=== PATIENT | male | born 1985 | race Caucasian/White ===

== ENCOUNTER → 2020-12-02 13:55 | Outpatient (BNVA) | payer OTHER, SELFPAY | PROVIDERS: Visit Provider Nurse Practitioner Family | DX: Z20.828 Contact with and (suspected) exposure to other viral communicable diseases (principal) | CPT/HCPCS: 87635 ==

== ENCOUNTER → 2021-05-05 15:07 | Outpatient (BNVA) | payer SELFPAY | PROVIDERS: Visit Provider Emergency Medicine | DX: M79.643 Pain in unspecified hand (principal) | CPT/HCPCS: 73110 ==

== ENCOUNTER → 2021-06-28 15:12 | Outpatient (BNVA) | payer SELFPAY | PROVIDERS: Referring Provider Emergency Medicine; Visit Provider Specialist | DX: G56.03 Carpal tunnel syndrome, bilateral upper limbs (principal); Z87.891 Personal history of nicotine dependence; R19.8 Other specified symptoms and signs involving the digestive system and abdomen | CPT/HCPCS: 83630; 87425; 87506; 95910 ==

== ENCOUNTER → 2021-06-30 14:54 | Outpatient (BNVA) | payer SELFPAY | PROVIDERS: Visit Provider Nurse Practitioner Family | DX: Z20.822 Contact with and (suspected) exposure to COVID-19 (principal); J06.9 Acute upper respiratory infection, unspecified | CPT/HCPCS: 87426 ==

== ENCOUNTER → 2021-12-17 10:54 | Outpatient (BNVA) | payer OTHER, SELFPAY | PROVIDERS: Visit Provider Emergency Medicine | DX: Z20.822 Contact with and (suspected) exposure to COVID-19 (principal) | CPT/HCPCS: 87635 ==

== ENCOUNTER 2021-12-27 11:44 | Inpatient (IN) | payer SELFPAY ==
[2021-12-27 12:06] VITALS: BP 110/70; PULSE 86; RESP 16; TEMP 36.6; O2SAT 96
--- NOTE | 2021-12-27 12:37 | ED.C_ITS ---
Documented by User: PUJA Page 12/27/21 14:38 HPI - Psych General: Chief Complaint: Psychiatric Symptoms Stated Complaint: Psych eval Time Seen by Provider: 12/27/21 12:18 Source: patient Mode of arrival: ambulatory Limitations: no limitations History of Present Illness: Patient is a 36-year-old male who presents to ED today on a 96-hour hold. According to hold paperwork patient has been having auditory and visual hallucinations as well as paranoia. Patient apparently has been using methamphetamine. According to hold paperwork he has been talking to the feds . Family has found drug paraphernalia in his daughter's room. Patient tells me he has been hearing voices and seeing abnormal things such as the door being unlocked in his house. He states this all stemmed from when he stayed in a hotel room and the front office assistant took his credit card information. MD complaint: altered mental status and other (psychosis) Onset (ago): week(s) Duration: intermittent Exacerbating factors: drug use Context: recent alcohol abuse and recent drug abuse Associated symptoms: Deny auditory hallucinations or visual hallucinations Review of Systems Const: Denies: fever(s) or chills Card: Denies: chest pain, palpitations, lightheadedness or syncope Resp: Denies: dyspnea GI: Denies: abdominal pain, nausea, vomiting or diarrhea Skin/Breast: Denies: rash Neuro: Denies: headache(s) Psych: Reports: paranoia; Denies: visual hallucinations or auditory hallucinations PFS ED PFSH: Medical History ADHD Alpha galactosidase deficiency Psychiatric care Social History Smoking and tobacco status: current every day smoker Alcohol intake: former Physical Exam Const: COMMON NORMALS: no acute distress, average body habitus, patient oriented x3, no limitations, healthy appearing, alert and well nourished Neuro: NUVIA COMA SCALE: document GCS findings [place] coma scale eye opening: Spontaneous [place] coma scale verbal response: Orientated [place] coma scale motor response: Obey commands [place] coma scale total score: 15 COMMON NORMALS: patient oriented x3, moves all extremities, no focal motor deficits and no sensory deficits noted SENSORIUM/ORIENTATION: Yes alert Psych: COMMON NORMALS: mental status grossly normal, cooperative, normal affect, speech normal, activity/motor behavior normal, denies homicidal ideation and denies suicidal ideation APPEARANCE: Yes grossly normal ATTITUDE: Yes calm ACTIVITY/MOTOR BEHAVIOR: Yes appropriate eye contact SPEECH: Yes no rmal speech MOOD & AFFECT: Yes euthymic mood ATTENTION/CONCENTRATION: Yes attention grossly intact and Yes concentration grossly intact MEMORY/COGNITION: Yes memory grossly intact INSIGHT: Fair insight present (Psych) JUDGEMENT: Fair judgement present (Psych) Course Consultations: Consultation #1: Dr. Ritter-accepts to NPU Vital Signs: Vital signs: Vital Signs Temperature 97.8 F 12/27/21 12:06 Pulse Rate 86 12/27/21 12:06 Respiratory Rate 16 12/27/21 12:06 Blood Pressure 110/70 12/27/21 12:06 Pulse Oximetry 96 12/27/21 12:06 MDM - Psych Medical Decision Making Patient is cleared medically. He will be admitted to NPU to Dr. Ritter. Lab Data : 12/27/21 13:37 12/27/21 13:37 Laboratory Results WBC 8.5 10^3/uL (4.0-10.0) 12/27/21 13:37 RBC 5.50 10^6/uL (4.1-5.3) H 12/27/21 13:37 Hgb 16.3 g/dL (11.7-16.6) 12/27/21 13:37 Hct 50.9 % (42.0-52.0) 12/27/21 13:37 MCV 92.5 fl (80-94) 12/27/21 13:37 MCH 29.6 pg (28.0-34.0) 12/27/21 13:37 MCHC 32.0 g/dL (30.0-36.0) 12/27/21 13:37 RDW 13.8 % (12.1-15.1) 12/27/21 13:37 Plt Count 313 10^3/cmm (130-400) 12/27/21 13:37 MPV 9.9 fL (7.4-10.4) 12/27/21 13:37 Neut % (Auto) 76.2 % 12/27/21 13:37 Lymph % (Auto) 13.4 % 12/27/21 13:37 [place] % (Auto) 6.6 % 12/27/21 13:37 Eos % (Auto) 2.5 % 12/27/21 13:37 Baso % (Auto) 0.9 % 12/27/21 13:37 Neut # (Auto) 6.44 10^3/uL (1.8-7.7) 12/27/21 13:37 Lymph # (Auto) 1.1 10^3/uL (0.8-4.8) 12/27/21 13:37 [place] # (Auto) 0.6 10^3/uL (0.2-0.9) 12/27/21 13:37 Eos # (Auto) 0.2 10^3/uL (0.0-0.8) 12/27/21 13:37 Baso # (Auto) 0.1 10^3/uL (0.0-0.1) 12/27/21 13:37 Nucleated RBC % (auto) 0 % 12/27/21 13:37 Nucleated RBCs # 0.0 /100WBC 12/27/21 13:37 Sodium 138 mmol/L (136-145) 12/27/21 13:37 Potassium 3.9 mmol/L (3.5-5.1) 12/27/21 13:37 Chloride 101 mmol/L (98-107) 12/27/21 13:37 Carbon Dioxide 29 mmol/L (22-29) 12/27/21 13:37 Anion Gap 11.9 (5-19) 12/27/21 13:37 BUN 11 mg/dL (6-20) 12/27/21 13:37 Creatinine 1.0 mg/dL (0.7-1.2) 12/27/21 13:37 GFR Calculation 83.6 mL/min (90-130) L 12/27/21 13:37 Glucose 136 mg/dL (65-115) H 12/27/21 13:37 Calculated Osmolality 287 mOsm/kg (285-295) 12/27/21 13:37 Calcium 8.6 mg/dL (8.5-10.5) 12/27/21 13:37 Total Bilirubin 0.4 mg/dL (0.15-1.2) 12/27/21 13:37 AST 20 U/L (0-40) 12/27/21 13:37 ALT 32 U/L (0-41) 12/27/21 13:37 Alkaline Phosphatase 77 IU/L (40-130) 12/27/21 13:37 Total Protein 6.4 g/dL (6.6-8.7) L 12/27/21 13:37 Albumin 4.2 g/dL (3.5-5.2) 12/27/21 13:37 Globulin 2.2 g/dL (1.3-4.6) 12/27/21 13:37 Salicylates < 0.3 mg/dL (3-10) L 12/27/21 13:37 Acetaminophen < 5.0 ug/mL (10-30) L 12/27/21 13:37 Ethyl Alcohol < 10 mg/dL (0-10) 12/27/21 13:37 Discharge Plan Discharge Patient Disposition: Admitted As Inpatient Admit Provider: Anatoliy Ritter Clinical Impression: Hallucinations, Methamphetamine abuse, Involuntary commitment Condition: Stable Coding Level of Care Code ED Information Technology Director for Chg Fwd Exam Expanded Problem Focused Documented by User: Darrian Montero DO 12/27/21 15:34 HPI - Psych General: Chief Complaint: Psychiatric Symptoms Stated Complaint: Psych eval Time Seen by Provider: 12/27/21 12:18 PFSH ED PFSH: Medical History ADHD Alpha galactosidase deficiency Psychiatric care Social History Smoking and tobacco status: current every day smoker Alcohol intake: former Physical Exam Const: GENERAL APPEARANCE: cooperative and comfortable ORIENTATION/CONSCIOUSNESS: Yes awake HENMT: COMMON NORMALS: normocephalic, atraumatic and hearing grossly normal bilaterally HEAD & SCALP: normocephalic and atraumatic Neck/C-Spine: COMMON NORMALS: no JVD Resp: COMMON NORMALS: normal respiratory effort, No retractions, No use of accessory muscles and clear to auscultation bilaterally AUSCULTATION: clear to auscultation bilaterally Cardio: COMMON NORMALS: no JVD, regular rate, regular rhythm and No murmurs present (Cardio) RATE: regular rate RHYTHM: regular rhythm Neuro: NUVIA COMA SCALE: document GCS findings [place] coma scale total score: 15 Course Vital Signs: Vital signs: Vital Signs Temperature 97.8 F 12/27/21 12:06 Pulse Rate 86 12/27/21 12:06 Respiratory Rate 16 12/27/21 12:06 Blood Pressure 110/70 12/27/21 12:06 Pulse Oximetry 96 12/27/21 12:06 MDM - Psych Medical Decision Making Patient is cleared medically. He will be admitted to NPU to Dr. Ritter. Interviewed patient. He is having acute psychotic episodes with auditory and visual hallucinations. There is also reported as 96-hour hold he is leaving drug paraphernalia around his children. Staff was instructed to hotline him to DFS. Discussed with midlevel. Chart reviewed and patient discussed with midlevel. Agree with assessment and plan. Orders written Lab Data : 12/27/21 13:37 12/27/21 13:37 Laboratory Results WBC 8.5 10^3/uL (4.0-10.0) 12/27/21 13:37 RBC 5.50 10^6/uL (4.1-5.3) H 12/27/21 13:37 Hgb 16.3 g/dL (11.7-16.6) 12/27/21 13:37 Hct 50.9 % (42.0-52.0) 12/27/21 13:37 MCV 92.5 fl (80-94) 12/27/21 13:37 MCH 29.6 pg (28.0-34.0) 12/27/21 13:37 MCHC 32.0 g/dL (30.0-36.0) 12/27/21 13:37 RDW 13.8 % (12.1-15.1) 12/27/21 13:37 Plt Count 313 10^3/cmm (130-400) 12/27/21 13:37 MPV 9.9 fL (7.4-10.4) 12/27/21 13:37 Neut % (Auto) 76.2 % 12/27/21 13:37 Lymph % (Auto) 13.4 % 12/27/21 13:37 [place] % (Auto) 6.6 % 12/27/21 13:37 Eos % (Auto) 2.5 % 12/27/21 13:37 Baso % (Auto) 0.9 % 12/27/21 13:37 Neut # (Auto) 6.44 10^3/uL (1.8-7.7) 12/27/21 13:37 Lymph # (Auto) 1.1 10^3/uL (0.8-4.8) 12/27/21 13:37 [place] # (Auto) 0.6 10^3/uL (0.2-0.9) 12/27/21 13:37 Eos # (Auto) 0.2 10^3/uL (0.0-0.8) 12/27/21 13:37 Baso # (Auto) 0.1 10^3/uL (0.0-0.1) 12/27/21 13:37 Nucleated RBC % (auto) 0 % 12/27/21 13:37 Nucleated RBCs # 0.0 /100WBC 12/27/21 13:37 Sodium 138 mmol/L (136-145) 12/27/21 13:37 Potassium 3.9 mmol/L (3.5-5.1) 12/27/21 13:37 Chloride 101 mmol/L (98-107) 12/27/21 13:37 Carbon Dioxide 29 mmol/L (22-29) 12/27/21 13:37 Anion Gap 11.9 (5-19) 12/27/21 13:37 BUN 11 mg/dL (6-20) 12/27/21 13:37 Creatinine 1.0 mg/dL (0.7-1.2) 12/27/21 13:37 GFR Calculation 83.6 mL/min (90-130) L 12/27/21 13:37 Glucose 136 mg/dL (65-115) H 12/27/21 13:37 Calculated Osmolality 287 mOsm/kg (285-295) 12/27/21 13:37 Calcium 8.6 mg/dL (8.5-10.5) 12/27/21 13:37 Total Bilirubin 0.4 mg/dL (0.15-1.2) 12/27/21 13:37 AST 20 U/L (0-40) 12/27/21 13:37 ALT 32 U/L (0-41) 12/27/21 13:37 Alkaline Phosphatase 77 IU/L (40-130) 12/27/21 13:37 Total Protein 6.4 g/dL (6.6-8.7) L 12/27/21 13:37 Albumin 4.2 g/dL (3.5-5.2) 12/27/21 13:37 Globulin 2.2 g/dL (1.3-4.6) 12/27/21 13:37 Salicylates < 0.3 mg/dL (3-10) L 12/27/21 13:37 Acetaminophen < 5.0 ug/mL (10-30) L 12/27/21 13:37 Ethyl Alcohol < 10 mg/dL (0-10) 12/27/21 13:37 Discharge Plan Discharge Patient Disposition: Admitted As Inpatient Admit Provider: Anatoliy Ritter Clinical Impression: Hallucinations, Methamphetamine abuse, Involuntary commitment Condition: Stable Coding Level of Care Code ED Information Technology Director for Chg Fwd Exam Expanded Problem Focused
[2021-12-27 14:03] LABS: Basophils # 0.1 10^3/uL (0.0-0.1); Basophils % 0.9 %; Eosinophils # 0.2 10^3/uL (0.0-0.8); Eosinophils % 2.5 %; Hematocrit 50.9 % (42.0-52.0); Hemoglobin 16.3 g/dL (11.7-16.6); Lymphocytes # 1.1 10^3/uL (0.8-4.8); Lymphocytes % 13.4 %; Mean Corpuscular Hemoglobin 29.6 pg (28.0-34.0); Mean Corpuscular Volume 92.5 fl (80-94); Mean Platelet Volume 9.9 fL (7.4-10.4); Monocytes # 0.6 10^3/uL (0.2-0.9); Monocytes % 6.6 %; Neutrophils # 6.44 10^3/uL (1.8-7.7); Neutrophils % 76.2 %; Nucleated Red Blood Cells % 0 %; Platelet Count 313 10^3/cmm (130-400); Red Cell Distribution Width 13.8 % (12.1-15.1); White Blood Count 8.5 10^3/uL (4.0-10.0)
[2021-12-27 14:30] LABS: Alanine Aminotransferase 32 U/L (0-41); Albumin Level 4.2 g/dL (3.5-5.2); Alkaline Phosphatase 77 IU/L (40-130); Anion Gap 11.9 (5-19); Aspartate Amino Transferase 20 U/L (0-40); Blood Urea Nitrogen 11 mg/dL (6-20); Calcium 8.6 mg/dL (8.5-10.5); Carbon Dioxide 29 mmol/L (22-29); Chloride 101 mmol/L (98-107); Globulin 2.2 g/dL (1.3-4.6); Glomerular Filtration Rate 83.6 mL/min (90-130); Glucose 136 mg/dL (65-115); Osmolality Calculated 287 mOsm/kg (285-295); Potassium 3.9 mmol/L (3.5-5.1); Sodium 138 mmol/L (136-145); Total Bilirubin 0.4 mg/dL (0.15-1.2); Total Protein 6.4 g/dL (6.6-8.7)
[2021-12-27 14:31] LABS: Acetaminophen < 5.0 ug/mL (10-30); Alcohol Level < 10 mg/dL (0-10); Salicylate < 0.3 mg/dL (3-10)
--- NOTE | 2021-12-27 15:06 | PC.NURSE ---
7483 Hotline called for child neglect. reported to [facility] [id number]. Drug paraphernalia found in step daughter room who is 6 years old. pt hearing voices in his head. pt admits to using meth 2 days ago. pt denies SI or HI. pt states he knows now what the voices are saying to him are not real. pt placed in paper scrubs. pt cooperative in room.
[2021-12-27 15:22] LABS: Amphetamines Screen Urine Positive (Negative); Barbiturates Screen Urine Negative (Negative); Benzodiazepines Screen Urine Negative (Negative); Cocaine Screen Urine Negative (Negative); Opiate Screen Urine Negative (Negative); PCP Screen Urine Negative (Negative); THC Screen Urine Negative (Negative)
[2021-12-27 15:45] VITALS: BP 110/70; PULSE 82; RESP 18; O2SAT 98
[2021-12-27 16:54] VITALS: BP 110/70; PULSE 82; RESP 18; TEMP 36.6; O2SAT 98
[2021-12-27] MEDS: nicotine 4 mg lozenge MUCOUS MEM ×2 (17:39→21:26)
--- NOTE | 2021-12-27 18:18 | PC.NURSE ---
Patient is a 36-year-old male who presents to ED today on a 96-hour hold. According to hold paperwork patient has been having auditory and visual hallucinations as well as paranoia. Patient apparently has been using methamphetamine. According to hold paperwork he has been talking to the feds . Family has found drug paraphernalia in his daughter's room. Patient tells me he has been hearing voices and seeing abnormal things such as the door being unlocked in his house. He states this all stemmed from when he stayed in a hotel room and the medical record assistant took his credit card information. Upon arrival to NPU, patient A&OX4, cooperative, figitey, flights of ideas. Reports hearing voices and seeing strange things. Denies these being hallucinations but then states that he thinks he may be schizophrenic and wants help. At NPU denies any SI or HI.
[2021-12-27] MEDS: NON-FORMULARY MEDICATION (Buprenorphine Hcl 8 mg tablet, sublingual) 8 EACH SUBLINGUAL (21:05)
[2021-12-27 21:19] VITALS: BP 140/78; PULSE 70; RESP 16; TEMP 36.7; O2SAT 98
[2021-12-28 06:00] VITALS: BP 110/70; PULSE 75; RESP 18; TEMP 36.7; O2SAT 99
--- NOTE | 2021-12-28 09:48 | P.NPUHP_ITS ---
Providers/Chief Complaint Admitting Physician: Anatoliy Ritter MD Chief Complaint: Psych eval HPI NPU History of Present Illness Antelmo Castelan is a 36 year old male who presented to the ED with the following report: Chief Complaint: Psychiatric Symptoms Stated Complaint: Psych eval Time Seen by Provider: 12/27/21 12:18 Source: patient Mode of arrival: ambulatory Limitations: no limitations History of Present Illness:?? Patient is a 36-year-old male who presents to ED today on a 96-hour hold.? According to hold paperwork patient has been having auditory and visual hallucinations as well as paranoia.? Patient apparently has been using methamphetamine.? According to hold paperwork he has been talking to the feds .? Family has found drug paraphernalia in his daughter's room. Patient tells me he has been hearing voices and seeing abnormal things such as the door being unlocked in his house. He states this all stemmed from when he stayed in a hotel room and the virtual assistant took his credit card information.? complaint: altered mental status and other (psychosis) Onset (ago): week(s) Duration: intermittent Exacerbating factors: drug use Context: recent alcohol abuse and recent drug abuse Associated symptoms: Deny auditory hallucinations or visual hallucinations He was admitted to the neuropsychiatric unit for definitive treatment of those issues. He presents today reporting that he had 1 previous psychiatric hospitalization almost 20 years ago. He reports his mother had when he was young and things had really gotten out of sorts for him. He reports he has had outpatient services at [facility]. He reports he has had some medication management in his life. He reports that he smokes about a pack of cigarettes a day, drinks alcohol recently about 1 to 2 days a month, denies marijuana but does endorse methamphetamine use. He reports he is been to rehab about 10 times but those times were mostly for alcohol and reports he has had about 3 DUIs leading to him having a breathalyzer to start his ignition. He presents today reporting that a lot of this started with him his and him not doing well from the standpoint of his recovery since then. He reports that methamphetamine has become a part of his life and he reports over the last month he has been using very heavily and the cost of that has been him having psychosis. He reports is never been like this but that he was unclear what was real and what was not. He reports that he feels better since he has been here in the hospital, that he knows he is on a 96-hour hold, and that he plans on doing what is necessary to get things back on track. This includes from his perspective moving, getting a new job and working on his recovery and mental health. We discussed getting some collateral information and considering possible medication changes moving forward. He denies major depression, anxiety, PTSD symptoms etc. when he is not doing the drugs but he does endorse having some emotional challenges related to the divorce. He denies any history of suicide attempts or self-injurious behavior. Psychiatric history: As above. Substance abuse history: As above. Family history: He endorses mental health and addiction issues on his dad side of the family but denies any suicide attempts or completions in the family. Developmental history: He reports that he was premature and needed significant interventions for the first 6 months of his life, but denied any issues learning to walk or talk for meeting his developmental milestones, he reports that when he went off to school he did not require speech therapy learning support emotional support or special education classes. Psychosocial history: He reports that his parents were together when he was born but fairly quickly. He is the only product of that union. Both parents had one other child that are his half siblings. He reports that his childhood was pretty good and he denied any emotional physical or sexual abuse. He denies any traumatic experiences in his life and reports that he graduated from high school, with the [employer] and did have about a semester of college. He endorses that he is a heterosexual with his longest relationship being 3 years. He is been 2 times, once and is currently , he has 1 son that is about 1 year and 9 to 10 months old. He is never been in the and reports that he is a Christianity. His longest job is 3 years at [email or web address]. He currently lives in an apartment but he is planning on moving. Legal history: He reports he has been behind bars probably 10 times in the longest time was about 3-1/2 years. Medical history: He reports having alpha gal. Please see ED note for additional details. Meds NPU Home Medications Medication Instructions Recorded Confirmed Last Taken Type dextroamphetamine-amphetamine ER 30 mg PO QAM 30 Days #30 cap 11/13/21 12/27/21 12/27/21 Rx 30 mg 24hr capsule,extend release buprenorphine HCl 8 mg sublingual 8 mg SUBLINGUAL TID 12/27/21 12/27/21 12/27/21 History tablet dextroamphetamine-amphetamine 10 10 mg PO DAILY 12/27/21 12/27/21 12/27/21 History mg tablet Allergies Allergy/AdvReac Type Severity Reaction Status Date / Time pork derived (porcine) Allergy Unknown UNKNOWN Verified 12/17/21 10:51 [id number]-[id number]-7,3-Galactose Allergy angioedema Verified 12/17/21 10:51 (Alph PFSH NPU PFSH: Medical History ADHD Alpha galactosidase deficiency Psychiatric care Social History Smoking and tobacco status: current every day smoker Alcohol intake: former Mental Status Exam MSE Comments: This is a well-nourished, well-developed white male in hospital scrubs with adequate grooming and eye contact. No abnormal movements except for mild psychomotor retardation. Cooperative with exam in mild distress. Speech was normal rate and volume. Mood described as getting better, affect slightly subdued. Thought process organized. Thought contact: patient denies suicidal or homicidal ideation, there were no delusions reported or noted, patient denied auditory or visual hallucinations. Attention and concentration appeared intact and memory appeared reliable but none were formally tested. Patient is alert and oriented times three. Insight and judgment appear fair and impulse control appears limited versus impaired. Vitals/I&O/Wt Last Vital Signs Temp 98.1 F 12/28/21 06:00 Pulse 75 12/28/21 06:00 Resp 18 12/28/21 06:00 BP 110/70 12/28/21 06:00 Pulse Ox 99 12/28/21 06:00 Weight last 48 hrs Weight 83.915 kg Data NPU : 12/27/21 13:37 12/27/21 13:37 A&P Assessment and plan (1) Hallucinations: Status: Acute (2) Methamphetamine abuse: Status: Acute (3) ADHD: Status: Acute (4) Alpha galactosidase deficiency: Status: Acute (5) Bilateral carpal tunnel syndrome: Status: Acute (6) Partner relational problem: Status: Acute (7) Psychosis: Status: Acute Plan This is a 36-year-old white male with a long history of addiction, legal issues recent partner relational problems with ADHD and anxiety who presents with psychosis appearing secondary to methamphetamine use with bizarre behavior and concerns for suicidality. 1. Continue current medication. 2. Continue every 15 minute checks for safety. 3. Encourage individual, group and milieu therapies. 4. Encourage sober living treatment after discharge at the highest level of car e to which he is willing to commit. Involuntary Hold Information 96 Hour Hold: 96 Hour Involuntary Admission: Yes 96 Hour Hold Ending Date: 01/02/22 96 Hour Hold Ending Time: 11:44 Attestations NPU Medical Necessity Statement*: Inpatient hospitalization is medically necessary and the clinically appropriate intervention at this time. We will monitor medic ation to make changes as indicated. Patient will be in the hospital for over two midnights. Likely length of stay 3 to 5 days. Coding Level of Care Code Acute [facility] for Rosa Butler Diagnoses Hallucinations R44.3 Methamphetamine abuse F15.10 ADHD F90.9 Alpha galactosidase deficiency E75.6 Bilateral carpal tunnel syndrome G56.03 Partner relational problem Z63.0 Psychosis F29
[2021-12-28] MEDS: NON-FORMULARY MEDICATION (Buprenorphine Hcl 8 mg tablet, sublingual) 8 EACH SUBLINGUAL ×2 (10:13→15:06)
[2021-12-28] MEDS: fluticasone nasal spray 16gm Btl 2 SPRAY NASAL ×2 (10:19→20:21)
[2021-12-28] MEDS: cetirizine 10 mg Tablet PO (10:20)
[2021-12-28] MEDS: nicotine 4 mg lozenge MUCOUS MEM ×3 (12:30→21:50)
[2021-12-28 14:00] VITALS: BP 99/61; PULSE 56; RESP 20; TEMP 36.6; O2SAT 97
[2021-12-28 22:00] VITALS: BP 127/72; PULSE 82; RESP 16; TEMP 36.9; O2SAT 97
[2021-12-29 06:00] VITALS: BP 120/70; PULSE 72; RESP 18; TEMP 36.8; O2SAT 98
[2021-12-29] MEDS: NON-FORMULARY MEDICATION (Buprenorphine Hcl 8 mg tablet, sublingual) 8 EACH SUBLINGUAL ×3 (08:41→20:27)
[2021-12-29] MEDS: cetirizine 10 mg Tablet PO (08:42)
[2021-12-29] MEDS: nicotine 4 mg lozenge MUCOUS MEM ×2 (08:49→13:57)
[2021-12-29 14:00] VITALS: BP 132/84; PULSE 82; RESP 18; TEMP 36.1; O2SAT 97
--- NOTE | 2021-12-29 16:41 | W.PM.NPUPNS ---
Subjective NPU Subjective: Interval history: Patient presents today reporting that he is doing well. He had not followed through on the paperwork for turning leaf or any other programming but endorsed that he would. He had a fairly lengthy discussion about my discussion with his and concerns.. He verified as she did that the divorce will be final on Sunday. He tried to blame the divorce for his addiction but we discussed the fact that the divorce is partially predicated on the addiction which did not start in the last month. We also discussed that she verified that DFS is already involved and if there was a needle in the room but he argues that the needle came from someone else. We discussed concerns about him suggesting that his grandmother driving this note to assist him in getting out if we would have said he leave today. We discussed that we would monitor him and the likelihood of discharge in the next 48 hours. Mental Status Exam MSE Comments: This is a well-nourished, well-developed white male in hospital scrubs with adequate grooming and eye contact. No abnormal movements except for mild psychomotor retardation. Cooperative with exam in mild distress. Speech was normal rate and volume. Mood described as getting better, affect slightly subdued. Thought process organized. Thought contact: patient denies suicidal or homicidal ideation, there were no delusions reported or noted, patient denied auditory or visual hallucinations. Attention and concentration appeared intact and memory appeared reliable but none were formally tested. Patient is alert and oriented times three. Insight and judgment appear fair and impulse control appears limited. Vitals/I&O/Wt Last Vital Signs Temp 97 F L 12/29/21 14:00 Pulse 82 12/29/21 14:00 Resp 18 12/29/21 14:00 BP 132/84 12/29/21 14:00 Pulse Ox 97 12/29/21 14:00 Data NPU : 12/27/21 13:37 12/27/21 13:37 A&P Assessment and plan (1) Psychosis: Status: Acute (2) Partner relational problem: Status: Acute (3) Hallucinations: Status: Acute (4) Methamphetamine abuse: Status: Acute (5) Involuntary commitment: Status: Acute (6) ADHD: Status: Acute (7) Alpha galactosidase deficiency: Status: Acute (8) Bilateral carpal tunnel syndrome: Status: Acute Plan This is a 36-year-old white male with a long history of addiction, legal issues recent partner relational problems with ADHD and anxiety who presents with psychosis appearing secondary to methamphetamine use with bizarre behavior and concerns for suicidality. 1.? Continue current medication. 2.? Continue every 15 minute checks for safety. 3.? Encourage individual, group and milieu therapies. 4.? Encourage sober living treatment after discharge at the highest level of care to which he is willing to commit. He is working on possible facilities with the treatment team. Involuntary Hold Information 96 Hour Hold: 96 Hour Involuntary Admission: Yes 96 Hour Hold Ending Date: 01/02/22 96 Hour Hold Ending Time: 11:44 Attestations NPU Medical Necessity Statement*: Inpatient hospitalization is medically necessary and the clinically appropriate intervention at this time. We will monitor medication to make changes as indicated. Likely length of stay 2-4 days. Coding Level of Care Code Acute [facility] for Rosa Bravod Diagnoses Psychosis F29 Partner relational problem Z63.0 Hallucinations R44.3 Methamphetamine abuse F15.10 Involuntary commitment Z04.6 ADHD F90.9 Alpha galactosidase deficiency E75.6 Bilateral carpal tunnel syndrome G56.03
[2021-12-29] MEDS: fluticasone nasal spray 16gm Btl 2 SPRAY NASAL (18:25)
[2021-12-29 20:49] VITALS: BP 114/70; PULSE 59; RESP 17; TEMP 36.3; O2SAT 97
[2021-12-30 06:00] VITALS: BP 122/75; PULSE 64; RESP 16; TEMP 36.7; O2SAT 98
[2021-12-30] MEDS: cetirizine 10 mg Tablet PO (09:56)
[2021-12-30] MEDS: NON-FORMULARY MEDICATION (Buprenorphine Hcl 8 mg tablet, sublingual) 8 EACH SUBLINGUAL ×2 (09:56→14:51)
[2021-12-30] MEDS: nicotine 4 mg lozenge MUCOUS MEM ×3 (09:58→14:55)
[2021-12-30 14:00] VITALS: BP 131/78; PULSE 76; RESP 17; TEMP 36.8; O2SAT 98
--- NOTE | 2021-12-30 15:31 | W.PM.NPUDCS ---
Diagnoses at Discharge Discharge Diagnosis (1) Psychosis: Status: Resolved (2) Partner relational problem: Status: Acute (3) Hallucinations: Status: Resolved (4) Methamphetamine abuse: Status: Acute (5) Involuntary commitment: Status: Resolved (6) ADHD: Status: Acute (7) Alpha galactosidase deficiency: Status: Acute (8) Bilateral carpal tunnel syndrome: Status: Acute Reason for Visit Reason for Visit: Psych eval Brief History: History of Present Illness Antelmo Castelan is a 36 year old male who presented to the ED with the following report: Chief Complaint: P sychiatric Symptom s Stated Complaint : Psych eval Time Seen by Provider: 12/27/21 12:18 Yessica rce: patient Mode of arrival: ambula tory Limitations: no limitations? ? History of Present Illness:??? Patient is a 36-ye ar-old male who pr esents to ED today on a 96-hour hold .? According to jeri cunningham paperwork patie nt has been having auditory and visu al hallucinations as well as paranoi a.? Patient appare ntly has been usin g methamphetamine. ? According to miracle nina paperwork he has been talking to the feds .? Family has found drug iveth hopkins in his daughter's room. Patient tells me h e has been hearing voices and seeing abnormal things s uch as the door be ing unlocked in ak s house. He states this all stemmed from when he staye d in a hotel room and the assistant product manager took his credit ca rd information.? M D complaint: alter ed mental status a nd other (psychosi s) Onset (ago): we ek(s) Duration: in termittent Exacerb ating factors: maranda g use Context: rec ent alcohol abuse and recent drug ab use Associated sym ptoms: Deny audito ry hallucinations or visual hallucin ations He was admitted to the neuropsychiatric unit for definitive treatment of those issues.? He presents today reporting that he had 1 previous psychiatric hospitalization almost 20 years ago.? He reports his mother had when he was young and things had really gotten out of sorts for him.? He reports he has [facility] He reports he has had some medication management in his life.? He reports that he smokes about a pack of cigarettes a day, drinks alcohol recently about 1 to 2 days a month, denies marijuana but does endorse methamphetamine use.? He reports he is been to rehab about 10 times but those times were mostly for alcohol and reports he has had about 3 DUIs leading to him having a breathalyzer to start his ignition.? He presents today reporting that a lot of this started with him his and him not doing well from the standpoint of his recovery since then.? He reports that methamphetamine has become a part of his life and he reports over the last month he has been using very heavily and the cost of that has been him having psychosis.? He reports is never been like this but that he was unclear what was real and what was not.? He reports that he feels better since he has been here in the hospital, that he knows he is on a 96-hour hold, and that he plans on doing what is necessary to get things back on track.? This includes from his perspective moving, getting a new job and working on his recovery and mental health.? We discussed getting some collateral information and considering possible medication changes moving forward.? He denies major depression, anxiety, PTSD symptoms etc. when he is not doing the drugs but he does endorse having some emotional challenges related to the divorce.? He denies any history of suicide attempts or self-injurious behavior. Psychiatric history: As above. Substance abuse history: As above. Family history: He endorses mental health and addiction issues on his dad side of the family but denies any suicide attempts or completions in the family. Developmental history: He reports that he was premature and needed significant interventions for the first 6 months of his life, but denied any issues learning to walk or talk for meeting his developmental milestones, he reports that when he went off to school he did not require speech therapy learning support emotional support or special education classes. Psychosocial history: He reports that his parents were together when he was born but fairly quickly.? He is the only product of that union.? Both parents had one other child that are his half siblings.? He reports that his childhood was pretty good and he denied any emotional physical or sexual abuse.? He denies any traumatic experiences in his life and reports that he graduated from high school, with the [employer] school and did have about a semester of college.? He endorses that he is a heterosexual with his longest relationship being 3 years.? He is been 2 times, once and is currently , he has 1 son that is about 1 year and 9 to 10 months old.? He is never been in the and reports that he is a [employer].? His longest job is 3 years at [employer].? He currently lives in an apartment but he is planning on moving. Legal history: He reports he has been behind bars probably 10 times in the longest time was about 3-1/2 years. Medical history: He reports having alpha gal.? Please see ED note for additional details. Hospital Course Hospital Course Patient quickly acclimated to the individual, group and milieu therapies provided. He was in the midst of a divorce which was going to be final on January 02, 2022. And he clearly had significant antisocial personality traits versus personality disorder and narcissism interfering with his ability to receive the help being offered. He is identifying himself as ADHD, which might easily be true, but him utilizing amphetamines for treatment especially when he struggles with methamphetamine is not reasonable approach but he was not open to expert advice. Ultimately his psychosis which was likely methamphetamine induced resolved quickly and he reported that being told the methamphetamine essentially sufficient to cure him from doing it again. He appeared somewhat ambivalent to the recommendations and not interested in active addiction treatment. He was able to contract for safety outside the hospital prior to discharge. During the hospitalization, patient had routine laboratory studies which were within normal limits except for few outliers. Additionally there was a general medical evaluation which was also within normal limits and revealed no new acute processes. Discharge Summary: At the time of discharge, he denied psychosis or lethality. Mood and anxiety were well managed. Patient endorsed a plan to avoid all drugs of abuse and follow-up with the aftercare recommendations of the treatment team. Patient was evaluated and deemed to be absent credible lethality, and had achieved the maximum benefit from an inpatient hospitalization, so was discharged. Involuntary Hold Information 96 Hour Hold: 96 Hour Involuntary Admission: Yes 96 Hour Hold Ending Date: 01/02/22 96 Hour Hold Ending Time: 11:44 Mental Status Exam MSE Comments: This is a well-nourished, well-developed white male in hospital scrubs with adequate grooming and eye contact. No abnormal movements . Cooperative with exam in no acute distress. Speech was normal rate and volume. Mood described as getting better, affect slightly subdued. Thought process organized. Thought contact: patient denies suicidal or homicidal ideation, there were no delusions reported or noted, patient denied auditory or visual hallucinations. Attention and concentration appeared intact and memory appeared reliable but none were formally tested. Patient is alert and oriented times three. Insight and judgment appear fair and impulse control appears limited. Discharge Data Studies Completed and Pending: Laboratory Results WBC 8.5 10^3/uL (4.0- 10.0) 12/27/21 13:37 RBC 5.50 10^6/uL (4.1 -5.3) H 12/27/21 13:37 Hgb 16.3 g/dL (11.7-1 6.6) 12/27/21 13:37 Hct 50.9 % (42.0-52.0 ) 12/27/21 13:37 MCV 92.5 fl (80-94) 12/27/21 13:37 MCH 29.6 pg (28.0-34. 0) 12/27/21 13:37 MCHC 32.0 g/dL (30.0-3 6.0) 12/27/21 13:37 RDW 13.8 % (12.1-15.1 ) 12/27/21 13:37 Plt Count 313 10^3/cmm (130 -400) 12/27/21 13:37 MPV 9.9 fL (7.4-10.4) 12/27/21 13:37 Neut % (Auto) 76.2 % 12/27/21 13:37 Lymph % (Auto) 13.4 % 12/27/21 13:37 [place] % (Auto) 6.6 % 12/27/21 13:37 Eos % (Auto) 2.5 % 12/27/21 13:37 Baso % (Auto) 0.9 % 12/27/21 13:37 Neut # (Auto) 6.44 10^3/uL (1.8 -7.7) 12/27/21 13:37 Lymph # (Auto) 1.1 10^3/uL (0.8- 4.8) 12/27/21 13:37 [place] # (Auto) 0.6 10^3/uL (0.2- 0.9) 12/27/21 13:37 Eos # (Auto) 0.2 10^3/uL (0.0- 0.8) 12/27/21 13:37 Baso # (Auto) 0.1 10^3/uL (0.0- 0.1) 12/27/21 13:37 Nucleated RBC % (a uto) 0 % 12/27/21 13:37 Nucleated RBCs # 0.0 /100WBC 12/27/21 13:37 Sodium 138 mmol/L (136-1 45) 12/27/21 13:37 Potassium 3.9 mmol/L (3.5-5 .1) 12/27/21 13:37 Chloride 101 mmol/L (98-10 7) 12/27/21 13:37 Carbon Dioxide 29 mmol/L (22-29) 12/27/21 13:37 Anion Gap 11.9 (5-19) 12/27/21 13:37 BUN 11 mg/dL (6-20) 12/27/21 13:37 Creatinine 1.0 mg/dL (0.7-1. 2) 12/27/21 13:37 GFR Calculation 83.6 mL/min (90-1 30) L 12/27/21 13:37 Glucose 136 mg/dL (65-115 ) H 12/27/21 13:37 Calculated Osmolal ity 287 mOsm/kg (285- 295) 12/27/21 13:37 Calcium 8.6 mg/dL (8.5-10 .5) 12/27/21 13:37 Total Bilirubin 0.4 mg/dL (0.15-1 .2) 12/27/21 13:37 AST 20 U/L (0-40) 12/27/21 13:37 ALT 32 U/L (0-41) 12/27/21 13:37 Alkaline Phosphata se 77 IU/L (40-130) 12/27/21 13:37 Total Protein 6.4 g/dL (6.6-8.7 ) L 12/27/21 13:37 Albumin 4.2 g/dL (3.5-5.2 ) 12/27/21 13:37 Globulin 2.2 g/dL (1.3-4.6 ) 12/27/21 13:37 Salicylates < 0.3 mg/dL (3-10 ) L 12/27/21 13:37 Urine Opiates Scre en Negative ng/mL (N egative) 12/27/21 14:09 Acetaminophen < 5.0 ug/mL (10-3 0) L 12/27/21 13:37 Ur Barbiturates Sc reen Negative ng/mL (N egative) 12/27/21 14:09 Ur Phencyclidine S crn Negative ng/mL (N egative) 12/27/21 14:09 Ur Amphetamines Sc reen Positive ng/mL (N egative) H 12/27/21 14:09 U Benzodiazepines Scrn Negative ng/mL (N egative) 12/27/21 14:09 Urine Cocaine Scre en Negative ng/mL (N egative) 12/27/21 14:09 U Marijuana (THC) Screen Negative ng/mL (N egative) 12/27/21 14:09 Ethyl Alcohol < 10 mg/dL (0-10) 12/27/21 13:37 Vitals: Last Vital Signs Temp 98.2 F 12/30/21 14:00 Pulse 76 12/30/21 14:00 Resp 17 12/30/21 14:00 BP 131/78 12/30/21 14:00 Pulse Ox 98 12/30/21 14:00 Discharge Plan Discharge Patient Disposition: Home Condition: Stable Prescriptions: Continued buprenorphine HCl 8 mg tablet, sublingual 8 mg SUBLINGUAL TID 0RF Discontinued dextroamphetamine-amphetamine 30 mg capsule,extended release 24hr 30 mg PO QAM 30 Days Qty: 30 0RF Rx Instructions: TAKE WITH 10 MG TO EQUAL 40 MG DAILY dextroamphetamine-amphetamine 10 mg tablet 10 mg PO DAILY 0RF Rx Instructions: TAKE WITH 30 MG ONCE DAILY TO EQUAL 40 MG DAILY Discharge Orders: Discharge Order (Routine); Ordered 12/30/21 Ordered By: Anatoliy Ritter Referrals: [facility] [Other] Discharge Diet: Regular Discharge Activity: Resume usual activity Patient Instructions: Mood Disorders (ED), Methamphetamine Abuse (ED), Opioid Safety Discharge Attestations NPU Time Spent in Discharge Care*: less than 30 min Specific Discharge Activities: Specific discharge activities: educating patient, discussing with director case management/social workers/dc planners, documenting/other paperwork and evaluating patient/reviewing data Coding Level of Care Code Acute Chg FW DC note Diagnoses Psychosis F29 Partner relational problem Z63.0 Hallucinations R44.3 Methamphetamine abuse F15.10 Involuntary commitment Z04.6 ADHD F90.9 Alpha galactosidase deficiency E75.6 Bilateral carpal tunnel syndrome G56.03
[2021-12-30 15:44] VITALS: BP 131/78; PULSE 76; RESP 17; TEMP 36.8; O2SAT 98
== END 2021-12-30 16:34 | disposition home or self-care (01) | DRG 897 ==
LOC: ER 14:01 → NP 15:34
PROVIDERS: Physician Assistant; Admitting Provider Psychiatry & Neurology Psychiatry; Emergency Provider Family Medicine; Visit Provider Psychiatry & Neurology Psychiatry
DX: F15.10 Other stimulant abuse, uncomplicated (principal); F90.9 Attention-deficit hyperactivity disorder, unspecified type; F17.210 Nicotine dependence, cigarettes, uncomplicated; Z63.0 Problems in relationship with spouse or partner; F10.10 Alcohol abuse, uncomplicated
CPT/HCPCS: 36415; 80053; 80306; 80307; 85025; 97165; 99285

== ENCOUNTER → 2022-12-29 11:20 | Outpatient (BNVA) | payer BC, SELFPAY | PROVIDERS: Visit Provider Emergency Medicine | DX: N39.0 Urinary tract infection, site not specified (principal) | CPT/HCPCS: 81000; 87086 ==

== ENCOUNTER 2024-06-13 12:08 | Emergency (ER) | payer SELFPAY ==
[2024-06-13 12:09] VITALS: BP 119/68; PULSE 66; RESP 18; TEMP 36.9; O2SAT 94; BMI 29.5
--- NOTE | 2024-06-13 12:42 | CTR_ITS ---
PROCEDURE INFORMATION: Exam: CTA Chest With Contrast Exam date and time: 06/13/2024 1:46 PM Age: 39 years old Clinical indication: Pain; Angina pectoris; Additional info: Concern for pe TECHNIQUE: Imaging protocol: Computed tomographic angiography of the chest with contrast. Exam focused on the arteries. 3D rendering (Not supervised by radiologist): MIP and/or 3D reconstructed images were created by the technologist. Radiation optimization: All CT scans at this facility use at least one of these dose optimization techniques: automated exposure control; mA and/or kV adjustment per patient size (includes targeted exams where dose is matched to clinical indication); or iterative reconstruction. Contrast material: OMNI 350; Contrast volume: 470.17 ml; Contrast route: INTRAVENOUS (IV); COMPARISON: No relevant prior studies available. RADIATION DOSE METRICS: Total DLP (mGy-cm): 470.17 FINDINGS: Pulmonary arteries: No evidence of pulmonary thromboembolism. Aorta: No evidence of aneurysmal dilatation or dissection of the thoracic aorta. Thyroid: Grossly unremarkable. Lungs: No focal consolidation. No evidence of pneumonia. Pleural spaces: No evidence of pleural effusion. No pneumothorax. Heart: No cardiomegaly. No pericardial effusion. Mediastinal space: No evidence of mediastinal mass, fluid collection or hematoma. Lymph nodes: No mediastinal or hilar adenopathy. Bones/joints: No evidence of acute fracture or aggressive osseous lesion. Soft tissues: No evidence of fluid collection or hematoma in the superficial soft tissues. Other findings: No evidence of acute abnormality in the upper abdomen. CT/CT angio chest PE protcl [id number] IMPRESSION: 1. No evidence of PE or acute aortic abnormality.
--- NOTE | 2024-06-13 12:42 | ECG_ITS ---
[facility] Test Date: 2024-06-13 Pat Name: Antelmo Castelan Department: Room: Gender: Male Gag Writer: : 1985 Requested By: John Ramirez Order Number: [id number] Alessio MD: Dinesh Mendoza M.D. Measurements Intervals [place] Rate: 60 P: 39 WI: 148 QRS: 44 QRSD: 89 T: 52 QT: 354 QTc: 356 Interpretive Statements SINUS RHYTHM INTERPRETATION BASED ON A DEFAULT AGE OF 40 YEARS No previous ECG available for comparison Electronically Signed On 06-13-2024 15:34:23 CDT by Dinesh Mendoza M.D. [email or web address]
--- NOTE | 2024-06-13 12:44 | ED_ITS ---
HPI - Chest Pain 2 General: Chief Complaint: Chest Pain Stated Complaint: cp Time Seen by Provider: 06/13/24 12:12 History of Present Illness: Pt comes in by EMS with cp. 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 He got 324 mg ASA, and nitro en route. Review of Systems 2 General: Reports: 10 or more systems reviewed and unremarkable except in HPI and below PFSH ED 2 PFSH: Medical History ADHD Alpha galactosidase deficiency Seasonal allergies Social History Smoking and tobacco/nicotine status: current every day tobacco/nicotine user Alcohol intake: former Substance/Drug Use: never Physical Exam 2 Const: COMMON NORMALS: no acute distress, patient oriented x3, healthy appearing and alert HENMT: COMMON NORMALS: normocephalic and atraumatic HEAD & SCALP: n ormocephalic and atraumatic Eye: COMMON NORMALS: Equal, round and reactive pupils present and EOMs intact bilaterally PUPIL: Yes Equal, round and reactive pupils present Neck/C-Spine: COMMON NORMALS: full ROM and supple Resp: COMMON NORMALS: normal respiratory effort, No retractions and No use of accessory muscles Cardio: COMMON NORMALS: regular rate and regular rhythm RATE: regular rate RHYTHM: regular rhythm GI: COMMON NORMALS: Normal to inspection, nondistended, normoactive bowel sounds present, Soft to palpation and non-tender PALPATION: Yes Soft to palpation Extremity: COMMON NORMALS: normal to inspection and full ROM Neuro: COMMON NORMALS: patient oriented x3 SENSORIUM/ORIENTATION: Yes alert Psych: COMMON NORMALS: mental status grossly normal and cooperative Skin: COMMON NORMALS: no rashes or lesions noted and no wounds GENERAL SKIN EXAM: no rashes or lesions noted Course 2 Vital Signs: Vital signs: Vital Signs Temperature 98.4 F 06/13/24 12:09 Pulse Rate 58 L 06/13/24 14:42 Respiratory Rate 18 06/13/24 14:42 Blood Pressure 143/82 06/13/24 14:42 Pulse Oximetry 98 06/13/24 14:42 Oxygen Delivery Me thod Room Air 06/13/24 13:14 MDM - Chest Pain Medical Decision Making Pt comes in by EMS with cp. 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 He got 324 mg ASA, and nitro en route. PE is unremarkable at this time. Will check labs, ECG, CTA chest, and reassess. On reassessment I talked with the patient about the test results. His white blood cell count was slightly elevated at 12.59. His troponin was normal at baseline and on repeat at 2 hours. His sodium, and potassium are within normal limits. His creatinine is mildly elevated at 1.3. Encouraged him to follow-up with the broom stitcher as his primary care doctor referred him. Will discharge at this time with precautions to return for worsening or changing symptoms. Lab Data 06/13/24 12:13 06/13/24 12:13 Radiology Impressions Chest CTA 06/13/24 12:42 IMPRESSION: 1. No evidence of PE or acute aortic abnormality. Laboratory Results WBC 12.59 10^3/uL (3.29-11.43) H 06/13/24 12:13 RBC 5.70 10^6/uL (3.85-5.65) H 06/13/24 12:13 Hgb 16.30 g/dL (11.27-16.99) 06/13/24 12:13 Hct 51.0 % (37-53) 06/13/24 12:13 MCV 89.5 fl (82-101) 06/13/24 12:13 MCH 28.6 pg (27-33) 06/13/24 12:13 MCHC 32.0 g/dL (30-55) 06/13/24 12:13 RDW 13.4 % (12.1-15.1) 06/13/24 12:13 Plt Count 345 10^3/cmm (157-399) 06/13/24 12:13 MPV 10.3 fL (7.4-10.4) 06/13/24 12:13 Neut % (Auto) 69.8 % 06/13/24 12:13 Lymph % (Auto) 19.3 % 06/13/24 12:13 [place] % (Auto) 6.7 % 06/13/24 12:13 Eos % (Auto) 3.3 % 06/13/24 12:13 Baso % (Auto) 0.5 % 06/13/24 12:13 Neut # (Auto) 8.80 10^3/uL (1.8-7.7) H 06/13/24 12:13 Lymph # (Auto) 2.4 10^3/uL (0.8-4.8) 06/13/24 12:13 [place] # (Auto) 0.8 10^3/uL (0.2-0.9) 06/13/24 12:13 Eos # (Auto) 0.4 10^3/uL (0.0-0.8) 06/13/24 12:13 Baso # (Auto) 0.1 10^3/uL (0.0-0.1) 06/13/24 12:13 Nucleated RBC % (auto) 0 % 06/13/24 12:13 Nucleated RBCs # 0.0 /100WBC 06/13/24 12:13 Sodium 137 mmol/L (136-145) 06/13/24 12:13 Potassium 4.2 mmol/L (3.5-5.1) 06/13/24 12:13 Chloride 100 mmol/L (98-107) 06/13/24 12:13 Carbon Dioxide 29 mmol/L (22-29) 06/13/24 12:13 Anion Gap 12.2 (5-19) 06/13/24 12:13 BUN 12 mg/dL (6-20) 06/13/24 12:13 Creatinine 1.3 mg/dL (0.7-1.2) H 06/13/24 12:13 GFR Calculation 60.8 mL/min (90-130) L 06/13/24 12:13 Glucose 92 mg/dL (65-115) 06/13/24 12:13 Calculated Osmolality 283 mOsm/kg (285-295) L 06/13/24 12:13 Calcium 8.9 mg/dL (8.5-10.5) 06/13/24 12:13 Total Bilirubin 0.3 mg/dL (0.15-1.2) 06/13/24 12:13 AST 22 U/L (0-40) 06/13/24 12:13 ALT 67 U/L (0-41) H 06/13/24 12:13 Alkaline Phosphatase 79 U/L (40-130) 06/13/24 12:13 Creatine Kinase 173 U/L (39-308) 06/13/24 12:13 Troponin T Baseline 14 ng/L (0-15) 06/13/24 12:13 Troponin T 120 Minute 11.63 ng/L (0-15) 06/13/24 14:15 Delta Troponin T -2.37 ABS# (0-10) L 06/13/24 14:15 Total Protein 7.3 g/dL (6.6-8.7) 06/13/24 12:13 Albumin 4.6 g/dL (3.5-5.2) 06/13/24 12:13 Globulin 2.7 g/dL (1.3-4.6) 06/13/24 12:13 Lipase 46 U/L (13-60) 06/13/24 12:13 All radiology interpretation(s) finalized by discharge Discharge Plan Discharge Patient Disposition: Home Clinical Impression: Nonspecific chest pain Condition: Stable Prescriptions: No Action buprenorphine HCl 8 mg tablet, sublingual 8 mg SUBLINGUAL TID Discharge Orders: Discharge ED (Routine); Ordered 06/13/24 Ordered By: John Ramriez Patient Instructions: Chest Pain (ED) Coding Level of Care Code ED Thermometer Maker for Rosa Butler
[2024-06-13 12:49] LABS: Basophils # 0.1 10^3/uL (0.0-0.1); Basophils % 0.5 %; Eosinophils # 0.4 10^3/uL (0.0-0.8); Eosinophils % 3.3 %; Lymphocytes # 2.4 10^3/uL (0.8-4.8); Lymphocytes % 19.3 %; Mean Corpuscular Hemoglobin 28.6 pg (27-33); Mean Corpuscular Volume 89.5 fl (82-101); Mean Platelet Volume 10.3 fL (7.4-10.4); Monocytes # 0.8 10^3/uL (0.2-0.9); Monocytes % 6.7 %; Neutrophils % 69.8 %; Nucleated Red Blood Cells % 0 %; Platelet Count 345 10^3/cmm (157-399); Red Cell Distribution Width 13.4 % (12.1-15.1); White Blood Count 12.59 10^3/uL (3.29-11.43)
[2024-06-13] MEDS: sodium chloride 0.9% 1,000 ML 999 ML IV (13:03)
[2024-06-13 13:05] LABS: Alanine Aminotransferase 67 U/L (0-41); Albumin Level 4.6 g/dL (3.5-5.2); Alkaline Phosphatase 79 U/L (40-130); Anion Gap 12.2 (5-19); Aspartate Amino Transferase 22 U/L (0-40); Blood Urea Nitrogen 12 mg/dL (6-20); Calcium 8.9 mg/dL (8.5-10.5); Carbon Dioxide 29 mmol/L (22-29); Chloride 100 mmol/L (98-107); Creatine Phosphokinase 173 U/L (39-308); Globulin 2.7 g/dL (1.3-4.6); Glomerular Filtration Rate 60.8 mL/min (90-130); Glucose 92 mg/dL (65-115); Lipase 46 U/L (13-60); Osmolality Calculated 283 mOsm/kg (285-295); Potassium 4.2 mmol/L (3.5-5.1); Sodium 137 mmol/L (136-145); Total Bilirubin 0.3 mg/dL (0.15-1.2); Total Protein 7.3 g/dL (6.6-8.7)
[2024-06-13 13:06] LABS: Troponin(5th) Baseline 14 ng/L (0-15)
[2024-06-13 13:14] VITALS: BP 111/63; PULSE 60; RESP 13; O2SAT 96
[2024-06-13] MEDS: iohexol 350 mg/mL 500 mL Btl (per mL) IV (13:50)
[2024-06-13 14:42] VITALS: BP 143/82; PULSE 58; RESP 18; O2SAT 98
[2024-06-13 14:51] LABS: Troponin 5 2HR 11.63 ng/L (0-15); Troponin 5 2HR Delta -2.37 ABS# (0-10)
[2024-06-13 15:53] VITALS: BP 143/82; PULSE 104; RESP 18; O2SAT 98
== END 2024-06-13 15:53 | disposition home or self-care (01) ==
PROVIDERS: Emergency Provider Emergency Medicine
DX: R07.9 Chest pain, unspecified (principal); Z72.0 Tobacco use
CPT/HCPCS: 36415; 71275; 80053; 82550; 83690; 84484; 85025; 93005; 99285; J7030; Q9967

== ENCOUNTER 2024-07-06 09:27 | Emergency (ER) | payer SELFPAY ==
[2024-07-06 09:41] VITALS: BP 121/75; PULSE 73; RESP 17; TEMP 36.8; O2SAT 99; BMI 28.7
[2024-07-06 10:10] LABS: Rapid Strep A Test Negative (Negative)
[2024-07-06 10:16] LABS: SARS Covid-2 Antigen positive (Negative)
--- NOTE | 2024-07-06 10:20 | W.ED.GENADLT ---
HPI - General Adult General: Chief complaint: Upper Respiratory Infection Stated complaint: Fever, cough, mucus, soar throat Time Seen by Provider: 07/06/24 09:42 History of Present Illness: This patient is a 39-year-old presenting with fever, cough, body aches. The symptoms started yesterday. He is currently at the [facility] for alcohol treatment. He said he has not been actively drinking alcohol for some time but was court ordered there due to a prior DUI. He also had a history of opiate abuse in the past and has been on Suboxone for the past 3 years. He never used IV drugs. He does have some history of episodes of his heart racing and chest pains. He has been evaluated by his primary care for this and does not feel it is an issue today. His only current medication is the Suboxone. He has been taking some cold medicine, Tylenol as needed. He is not aware of any sick contacts but there are quite a few people living at the center currently. He has a history of vaping but has not been vaping recently. Related Data Home Medications Medication Instructions Recorded Confirmed buprenorphine HCl 8 mg sublingual 8 mg sublingual TID 12/27/21 06/13/24 tablet Previous Rx's Medication Instructions Recorded guaifenesin 1,200 mg tablet, 1,200 mg PO BID #10 tabs 07/06/24 extended release 12 hr nirmatrelvir 300 mg (150 mg See Rx Instructions PO .COMPLEX 07/06/24 x2)-ritonavir 100 mg tablet,dose #30 ea pack (Paxlovid) Allergies Allergy/AdvReac Type Severity Reaction Status Date / Time pork derived (porcine) Allergy Unknown UNKNOWN Verified 06/03/23 12:06 Alpha-Gal Allergy angioedema Verified 06/03/23 12:06 (Pwmqtrmtg-Fcvvu-7,3-Gala [Fxkutvpdl-Sbgon-3,3-Galactose (Alph] PFS ED PFSH: Medical History ADHD Alpha galactosidase deficiency Seasonal allergies Social History Smoking and tobacco/nicotine status: current every day tobacco/nicotine user Alcohol intake: former Substance/Drug Use: never Physical Exam Const: COMMON NORMALS: no acute distress, patient oriented x3, no limitations and alert GENERAL APPEARANCE: cooperative and comfortable HENMT: HEAD & SCALP: normal to inspection FACE & SINUS: normal facial exam Eye: GENERAL EYE: appearance normal, both eyes and all related structures Neck/C-Spine: COMMON NORMALS: supple, no meningeal signs and no JVD Chest: COMMONS NORMALS: normal inspection of the chest Resp: COMMON NORMALS: normal respiratory effort, No use of accessory muscles and clear to auscultation bilaterally AUSCULTATION: clear to auscultation bilaterally Cardio: COMMON NORMALS: no JVD, regular rate, regular rhythm and No murmurs present (Cardio) RATE: regular rate RHYTHM: regular rhythm GI: COMMON NORMALS: Normal to inspection, nondistended, normoactive bowel sounds present, Soft to palpation and non-tender INSPECTION: Yes normal to inspection AUSCULTATION: Yes normoactive bowel sounds PALPATION: Yes Soft to palpation Back/Pelvis: COMMON NORMALS: thoracic and lumbar spine normal to inspection Extremity: COMMON NORMALS: normal to inspection Neuro: COMMON NORMALS: patient oriented x3, moves all extremities, no focal motor deficits and no sensory deficits noted SENSORIUM/ORIENTATION: Yes alert MENINGEAL SIGNS: Yes no meningeal signs Psych: COMMON NORMALS: mental status grossly normal, cooperative and normal affect Skin: COMMON NORMALS: no rashes or lesions noted and turgor normal GENERAL SKIN EXAM: no rashes or lesions noted and turgor normal Course Vital Signs: Vital signs: Vital Signs Temperature 98.3 F 07/06/24 09:41 Pulse Rate 73 07/06/24 09:41 Respiratory Rate 17 07/06/24 09:41 Blood Pressure 121/75 07/06/24 09:41 Pulse Oximetry 99 07/06/24 09:41 Oxygen Delivery Me thod Room Air 07/06/24 09:41 MDM - General Adult Medical Decision Making Upper respiratory symptoms with fever. Significant complaints of sore throat as well. Strep was negative, COVID was positive. We discussed Paxlovid and he does not want to start that medication. We discussed that it will not stop the symptoms immediately but may potentially shorten the course. Lab Data Laboratory Results SARS-CoV-2 Ag (Rapid) positive (Negative) H 07/06/24 09:56 Group A Strep Rapid Negative (Negative) 07/06/24 09:56 No radiology studies performed this visit ED provider radiology interpretation(s): No chest x-ray done Discharge Plan Discharge Patient Disposition: Home Clinical Impression: Upper respiratory infection, COVID-19 Condition: Stable Prescriptions: New Paxlovid 300 mg (150 mg x 2)-100 mg tablets,dose pack See Rx Instructions .ROUTE .COMPLEX Qty: 30 0RF Rx Instructions: take TWO 150 mg tablets of nirmatrelvir with ONE 100 mg tablet of ritonavir twice daily for 5 days guaifenesin 1,200 mg tablet extended release 12hr 1,200 mg PO BID Qty: 10 0RF No Action buprenorphine HCl 8 mg tablet, sublingual 8 mg SUBLINGUAL TID Discharge Orders: Discharge ED (Routine); Ordered 07/06/24 Ordered By: Susy Alejandre Patient Instructions: Opioid Safety, Pain Management Activity Restrictions/Additional Instructions: Wear a mask until fever and cough improved. You are likely to be infectious for the next 4 days. Coding Level of Care Code ED Manager Credit Collections for Rosa Butler
== END 2024-07-06 10:37 | disposition home or self-care (01) ==
PROVIDERS: Emergency Provider Emergency Medicine
DX: U07.1 COVID-19 (principal); J06.9 Acute upper respiratory infection, unspecified; Z72.0 Tobacco use
CPT/HCPCS: 87081; 87426; 87880; 99283

== ENCOUNTER 2024-10-17 13:37 | Emergency (ER) | payer MEDICAID, SELFPAY ==
[2024-10-17 13:49] VITALS: BP 118/65; PULSE 100; RESP 18; TEMP 36.7; O2SAT 99; BMI 27.2
[2024-10-17 14:18] VITALS: BP 137/75; PULSE 93; RESP 18; O2SAT 96
--- NOTE | 2024-10-17 14:25 | USCV_ITS ---
Antelmo Castelan Age: 39 Gender: M : 1985 Exam Date: 10/17/2024 14:37 Ordering Phys: Velia Hedrick Technologist: Kishore Kirby Exam Location: [facility] – [place]_ Indication: redness swelling PROCEDURES: Venous duplex imaging was performed in only the left upper extremity. The following venous structures were evaluated: internal jugular vein, subclavian vein, axillary vein, and brachial veins. In addition, the basilic vein, cephalic vein, radial vein, and ulnar vein. Serial compression, augmentation maneuvers, and spectral Doppler flow evaluation were performed. FINDINGS: No evidence of deep vein thrombosis or superficial thrombophlebitis in the left upper extremity. There is an area noted directly inferior to the left elbow. This area appears heterogenous with no increased vascularity. CONCLUSIONS No evidence of thrombus of the left upper extremity veins. Area of interest overlying elbow measuring 3.0 x 0.9cm may represent a small amount of phlegmon, This does not appear drainable Rene Del Toro MD (Electronically Signed) Final Date: 17 October 2024 15:26 S
--- NOTE | 2024-10-17 14:26 | ED_ITS ---
HPI - Extremity Problem 2 General: Chief complaint: Extremity Problem,Nontraumatic Stated complaint: sipder bit on L.elbow, swollen and getting worst Time Seen by Provider: 10/17/24 14:03 Source: patient Mode of arrival: ambulatory Limitations: no limitations History of Present Illness: Patient is a 39-year-old male who presents to ED today for evaluation of what he believes is an infected spider bite to his left upper extremity. Patient states several days (10/11) ago he saw a spider that he flipped off his arm. He believes the spider bit him. He started developing redness and a sore to the area. He was seen at a walk-in clinic on 10/14 and prescribed Bactrim. Patient states he delayed getting this medication filled and just started it today and has had a total of 1 tablet/dose. He states symptoms have dramatically worsened since he was originally seen a few days ago. He does report low-grade fevers. He does have a history of IV drug use. No known history of MRSA. Vital signs are stable upon arrival. MD Complaint: extremity pain and extremity swelling Onset (ago): day(s) Pain Consistency: constant Location: left and upper extremity Radiation: none Relieving factors: nothing Exacerbating factors: nothing Associated symptoms: Reports fever(s) (low grade-subjective) and other (abscess); Deny chest pain Related Data Previous Rx's Medication Instructions Recorded mupirocin 2 % topical ointment 1 applic topical BID #15 grams 10/17/24 sulfamethoxazole 800 2 tab PO BID 10 days #40 tabs 10/17/24 mg-trimethoprim 160 mg tablet (Bactrim DS) Allergies Allergy/AdvReac Type Severity Reaction Status Date / Time No Known Allergies Allergy Verified 10/17/24 13:54 Review of Systems 2 Const: Reports: fever(s) (low grade-subjective); Denies: chills, body aches, fatigue or malaise Card: Denies: chest pain Resp: Denies: dyspnea GI: Denies: nausea or vomiting Musc: Reports: extremity pain and extremity swelling; Denies: neck pain or back pain Skin/Breast: Reports: erythema and other (abscess L lower arm/elbow) Neuro: Denies: numbness in extremities, weakness in extremities or sensory changes PFS ED 2 PFSH: Medical History Seasonal allergies ADHD Alpha galactosidase deficiency Social History Smoking and tobacco/nicotine status: unknown if used tobacco/nicotine Alcohol intake: former Substance/Drug Use: never Physical Exam 2 Const: COMMON NORMALS: no acute distress, average body habitus, patient oriented x3, no limitations, healthy appearing, alert and well nourished Resp: COMMON NORMALS: normal respiratory effort and clear to auscultation bilaterally AUSCULTATION: clear to auscultation bilaterally Cardio: COMMON NORMALS: regular rate and regular rhythm RATE: regular rate RHYTHM: regular rhythm Extremity: COMMON NORMALS: capillary refill normal GENERAL: Yes normal exam except as noted LEFT UPPER EXTREMITY: Yes lower arm Left lower arm: Yes neurovascular exam (normal) OTHER: extremity with edema starting at his elbow distally into the wrist; compartments are soft; he has full ROM of digits and wrists without pain out of proportion; draining abscess noted to volar forearm; he has fairly good ROM of elbow with some limitations due to swelling but micro movements are performed fairly easily; no lymphangitic streaking noted; no epitrochlear lymph node swelling appreciated Full Arm Back Left: 1. draining purulent material abscess with surrounding erythema/diffuse warmth and cellulitis 2. smaller area of redness/induration/palacios perficial abscess without fluctuance Neuro: COMMON NORMALS: patient oriented x3, moves all extremities, no focal motor deficits and no sensory deficits noted SENSORIUM/ORIENTATION: Yes alert Skin: NARRATIVE SKIN EXAM: see above Procedures Abscess I/D Site: upper extremity Side (if applicable): left Local Anesthetic: lidocaine 1% Amount of anesthesia used (mL): 2.0 Technique: incised with #11 blade Amount of fluid expressed (mL): 5.0 Packing used?: plain Course 2 Vital Signs: Vital signs: Vital Signs Temperature 98.1 F 10/17/24 13:49 Pulse Rate 93 10/17/24 14:18 Respiratory Rate 18 10/17/24 14:18 Blood Pressure 137/75 10/17/24 14:18 Pulse Oximetry 96 10/17/24 14:18 Oxygen Delivery Me thod Room Air 10/17/24 14:18 MDM - Extremity (Nontraumatic) Medical Decision Making Patient's vital signs are stable. Blood work showing a white count of 12.2. CRP is elevated 28.7. Abscess drained successfully and packed. He had blood cultures obtained and was given a dose of IV Vancomycin. He states he has only had one dose of antibiotics. There was clarification and he tells me that he did not ever fill the prescription given to him from the walk-in clinic. He is staying at a drug rehabilitation center and the psychiatric provider gave him one dose of antibiotic (unknown name) this AM. He states he was told they will fill any antibiotic from this visit at [facility]. Return ED precautions given. Medical Records I reviewed the patient's medical records. Lab Data I reviewed the patient's lab results. 10/17/24 14:43 10/17/24 14:43 Laboratory Results WBC 12.27 10^3/uL (3.29-11.43) H 10/17/24 14:43 RBC 4.91 10^6/uL (3.85-5.65) 10/17/24 14:43 Hgb 15.20 g/dL (11.27-16.99) 10/17/24 14:43 Hct 46.0 % (37-53) 10/17/24 14:43 MCV 93.7 fl (82-101) 10/17/24 14:43 MCH 31.0 pg (27-33) 10/17/24 14:43 MCHC 33.0 g/dL (30-55) 10/17/24 14:43 RDW 13.2 % (12.1-15.1) 10/17/24 14:43 Plt Count 308 10^3/cmm (157-399) 10/17/24 14:43 MPV 10.1 fL (7.4-10.4) 10/17/24 14:43 Neut % (Auto) 78.4 % 10/17/24 14:43 Lymph % (Auto) 11.2 % 10/17/24 14:43 [place] % (Auto) 7.7 % 10/17/24 14:43 Eos % (Auto) 2.0 % 10/17/24 14:43 Baso % (Auto) 0.4 % 10/17/24 14:43 Neut # (Auto) 9.61 10^3/uL (1.8-7.7) H 10/17/24 14:43 Lymph # (Auto) 1.4 10^3/uL (0.8-4.8) 10/17/24 14:43 [place] # (Auto) 1.0 10^3/uL (0.2-0.9) H 10/17/24 14:43 Eos # (Auto) 0.3 10^3/uL (0.0-0.8) 10/17/24 14:43 Baso # (Auto) 0.1 10^3/uL (0.0-0.1) 10/17/24 14:43 Nucleated RBC % (auto) 0 % 10/17/24 14:43 Nucleated RBCs # 0.0 /100WBC 10/17/24 14:43 Sodium 140 mmol/L (136-145) 10/17/24 14:43 Potassium 4.4 mmol/L (3.5-5.1) 10/17/24 14:43 Chloride 104 mmol/L (98-107) 10/17/24 14:43 Carbon Dioxide 28 mmol/L (22-29) 10/17/24 14:43 Anion Gap 12.4 (5-19) 10/17/24 14:43 BUN 10 mg/dL (6-20) 10/17/24 14:43 Creatinine 1.3 mg/dL (0.7-1.2) H 10/17/24 14:43 GFR Calculation 60.8 mL/min (90-130) L 10/17/24 14:43 Glucose 104 mg/dL (65-115) 10/17/24 14:43 Calculated Osmolality 289 mOsm/kg (285-295) 10/17/24 14:43 Calcium 9.0 mg/dL (8.5-10.5) 10/17/24 14:43 Total Bilirubin 0.2 mg/dL (0.15-1.2) 10/17/24 14:43 AST 14 U/L (0-40) 10/17/24 14:43 ALT 23 U/L (0-41) 10/17/24 14:43 Alkaline Phosphatase 76 U/L (40-130) 10/17/24 14:43 C-Reactive Protein 28.7 mg/L (0.0-4.9) H 10/17/24 14:43 Total Protein 6.4 g/dL (6.6-8.7) L 10/17/24 14:43 Albumin 4.0 g/dL (3.5-5.2) 10/17/24 14:43 Globulin 2.4 g/dL (1.3-4.6) 10/17/24 14:43 All radiology interpretation(s) finalized by discharge Discharge Plan Discharge Patient Disposition: Home Clinical Impression: Abscess of left forearm, Cellulitis of left forearm Condition: Stable Prescriptions: New mupirocin 2 % ointment 1 applic topical BID Qty: 15 0RF Changed sulfamethoxazole-trimethoprim [Bactrim DS] 800-160 mg tablet 2 tab PO BID 10 Days Qty: 40 0RF Discharge Orders: Discharge ED (Routine); Ordered 10/17/24 Ordered By: Velia Hedrick Patient Instructions: Abscess (ED), Abscess Follow-up (ED) Activity Restrictions/Additional Instructions: As we discussed, you need to fill your antibiotics today and start them immediately. You may take your first dose this evening. You need to keep area clean and dressed. You may remove the packing in 3 days. As we discussed, you need to seek medical reevaluation for worsening redness, swelling, pain, fevers, generally feeling worse or unwell, or any other concerns you may have. Hope you begin to feel better soon. Coding Level of Care Code ED Manufacturing Process Technician for Rosa Butler
[2024-10-17 14:55] LABS: Basophils # 0.1 10^3/uL (0.0-0.1); Basophils % 0.4 %; Eosinophils # 0.3 10^3/uL (0.0-0.8); Lymphocytes # 1.4 10^3/uL (0.8-4.8); Lymphocytes % 11.2 %; Mean Corpuscular Volume 93.7 fl (82-101); Mean Platelet Volume 10.1 fL (7.4-10.4); Monocytes % 7.7 %; Neutrophils # 9.61 10^3/uL (1.8-7.7); Neutrophils % 78.4 %; Nucleated Red Blood Cells % 0 %; Platelet Count 308 10^3/cmm (157-399); Red Blood Count 4.91 10^6/uL (3.85-5.65); Red Cell Distribution Width 13.2 % (12.1-15.1); White Blood Count 12.27 10^3/uL (3.29-11.43)
[2024-10-17 15:20] LABS: Alanine Aminotransferase 23 U/L (0-41); Alkaline Phosphatase 76 U/L (40-130); Anion Gap 12.4 (5-19); Aspartate Amino Transferase 14 U/L (0-40); Blood Urea Nitrogen 10 mg/dL (6-20); C Reactive Protein 28.7 mg/L (0.0-4.9); Carbon Dioxide 28 mmol/L (22-29); Chloride 104 mmol/L (98-107); Globulin 2.4 g/dL (1.3-4.6); Glomerular Filtration Rate 60.8 mL/min (90-130); Glucose 104 mg/dL (65-115); Osmolality Calculated 289 mOsm/kg (285-295); Potassium 4.4 mmol/L (3.5-5.1); Sodium 140 mmol/L (136-145); Total Bilirubin 0.2 mg/dL (0.15-1.2); Total Protein 6.4 g/dL (6.6-8.7)
[2024-10-17] MEDS: vancomycin 1,250 MG/250 ML PIGGYBACK 166.67 MG IV (15:45)
[2024-10-17 16:18] VITALS: BP 123/83; PULSE 84; RESP 12; O2SAT 98
[2024-10-17 17:04] VITALS: BP 132/85; PULSE 78; RESP 14; O2SAT 97
== END 2024-10-17 17:27 | disposition home or self-care (01) ==
PROVIDERS: Emergency Provider Physician Assistant
DX: L02.414 Cutaneous abscess of left upper limb (principal); L03.114 Cellulitis of left upper limb
CPT/HCPCS: 10060; 80053; 85025; 86140; 87040; 87070; 87075; 87077; 87186; 87205; 93971; 96365; 99284; J3370

== ENCOUNTER 2024-10-18 17:41 | Emergency (ER) | payer MEDICAID, SELFPAY ==
--- NOTE | 2024-10-18 17:45 | XRR_ITS ---
PROCEDURE INFORMATION: Exam: XR Left Hand Exam date and time: 10/18/2024 7:34 PM Age: 39 years old Clinical indication: Pain; Swelling; Hand; Left; Additional info: Swelling pain TECHNIQUE: Imaging protocol: Radiologic exam of the left hand. Views: 3 or more views. COMPARISON: No relevant prior studies available. FINDINGS: Bones/joints: Subtle contour irregularity of the medial base of the 5th distal phalanx is likely due to spur rather than fracture. Otherwise no fracture or dislocation or significant malalignment or arthropathy. Soft tissues: Mild soft swelling of the dorsum of the hand. XR/XR hand LT min 3V* [id number] IMPRESSION: 1. Mild soft swelling of the dorsum of the hand could indicate cellulitis or bland edema. 2. Subtle contour irregularity of the 5th distal phalanx is likely a spur although a fracture is not definitively excluded. Clinical correlation for any injury or focal symptomatology recommended.
[2024-10-18 18:02] VITALS: BP 111/63; PULSE 77; RESP 20; TEMP 36.8; O2SAT 96; BMI 28.7
--- NOTE | 2024-10-18 19:29 | ED_ITS ---
HPI - Extremity Problem 2 General: Chief complaint: Extremity Problem,Nontraumatic Stated complaint: left hand swollen Time Seen by Provider: 10/18/24 19:26 Source: patient Mode of arrival: ambulatory Limitations: no limitations History of Present Illness: 39-year-old male has had an abscess to h is left forearm he is seen here recently had the abscess drained given IV antibiotics has been placed on oral antibiotics for home. He states he had some increased pain in swelling to the site states it is continued to drain. Rates the pain a 7 out of 10 currently Associated symptoms: Reports fever(s); Deny chest pain Related Data Previous Rx's Medication Instructions Recorded mupirocin 2 % topical ointment 1 applic topical BID #15 grams 10/17/24 sulfamethoxazole 800 2 tab PO BID 10 days #40 tabs 10/17/24 mg-trimethoprim 160 mg tablet (Bactrim DS) hydrocodone 5 mg-acetaminophen 325 1 tab PO Q6H PRN pain #14 tabs 10/18/24 mg tablet Allergies Allergy/AdvReac Type Severity Reaction Status Date / Time No Known Allergies Allergy Verified 10/18/24 18:14 Review of Systems 2 Const: Reports: fever(s); Denies: chills, body aches or change in appetite ENMT: Denies: throat pain or dental pain Card: Denies: chest pain Resp: Denies: dyspnea GI: Denies: abdominal pain, nausea, vomiting or diarrhea Musc: Reports: extremity pain; Denies: neck pain or back pain Skin/Breast: Reports: erythema Neuro: Denies: headache(s) PFSH ED 2 PFSH: Medical History Seasonal allergies ADHD Alpha galactosidase deficiency Social History Smoking and tobacco/nicotine status: unknown if used tobacco/nicotine Alcohol intake: former Substance/Drug Use: never Physical Exam 2 Const: COMMON NORMALS: patient oriented x3 and healthy appearing HENMT: COMMON NORMALS: normocephalic and atraumatic HEAD & SCALP: n ormocephalic and atraumatic Eye: COMMON NORMALS: conjunctivae normal CONJUNCTIVA: Yes conjunctivae normal Neck/C-Spine: COMMON NORMALS: full ROM and supple Chest: COMMONS NORMALS: normal inspection of the chest Resp: COMMON NORMALS: normal respiratory effort and clear to auscultation bilaterally AUSCULTATION: clear to auscultation bilaterally Cardio: COMMON NORMALS: regular rate, regular rhythm and No murmurs present (Cardio) RATE: regular rate RHYTHM: regular rhythm Extremity: NARRATIVE EXTREMITY EXAM: Abscess noted to left forearm currently draining does have surrounding cellulitis Neuro: COMMON NORMALS: patient oriented x3, moves all extremities and no focal motor deficits Psych: COMMON NORMALS: mental status grossly normal, Normal thought process present and cooperative THOUGHT PROCESS: Normal thought process present Skin: COMMON NORMALS: no rashes or lesions noted and no wounds GENERAL SKIN EXAM: no rashes or lesions noted Procedures Abscess I/D Site: upper extremity Side (if applicable): left Local Anesthetic: lidocaine 1% Amount of anesthesia used (mL): 10 Technique: incised with #11 blade Packing used?: none Course 2 Vital Signs: Vital signs: Vital Signs Temperature 98.3 F 10/18/24 18:02 Pulse Rate 77 10/18/24 18:02 Respiratory Rate 20 H 10/18/24 18:02 Blood Pressure 111/63 10/18/24 18:02 Pulse Oximetry 96 10/18/24 18:02 Oxygen Delivery Me thod Room Air 10/18/24 18:02 MDM - Extremity (Nontraumatic) Medical Decision Making Patient presents here with abscess cellulitis to left forearm did extend the incision blood work ears are normal no signs of worsening infection did give a dose of IV antibiotics he is to continue his antibiotics follow-up with PCP and return if worsening. Medical Records I reviewed the patient's medical records. Lab Data I reviewed the patient's lab results. 10/18/24 19:43 10/18/24 19:43 Laboratory Results WBC 9.27 10^3/uL (3.29-11.43) 10/18/24 19:43 RBC 4.79 10^6/uL (3.85-5.65) 10/18/24 19:43 Hgb 14.40 g/dL (11.27-16.99) 10/18/24 19:43 Hct 44.3 % (37-53) 10/18/24 19:43 MCV 92.5 fl (82-101) 10/18/24 19:43 MCH 30.1 pg (27-33) 10/18/24 19:43 MCHC 32.5 g/dL (30-55) 10/18/24 19:43 RDW 13.0 % (12.1-15.1) 10/18/24 19:43 Plt Count 330 10^3/cmm (157-399) 10/18/24 19:43 MPV 9.9 fL (7.4-10.4) 10/18/24 19:43 Neut % (Auto) 72.1 % 10/18/24 19:43 Lymph % (Auto) 15.5 % 10/18/24 19:43 [place] % (Auto) 8.1 % 10/18/24 19:43 Eos % (Auto) 3.5 % 10/18/24 19:43 Baso % (Auto) 0.5 % 10/18/24 19:43 Neut # (Auto) 6.68 10^3/uL (1.8-7.7) 10/18/24 19:43 Lymph # (Auto) 1.4 10^3/uL (0.8-4.8) 10/18/24 19:43 [place] # (Auto) 0.8 10^3/uL (0.2-0.9) 10/18/24 19:43 Eos # (Auto) 0.3 10^3/uL (0.0-0.8) 10/18/24 19:43 Baso # (Auto) 0.1 10^3/uL (0.0-0.1) 10/18/24 19:43 Nucleated RBC % (auto) 0 % 10/18/24 19:43 Nucleated RBCs # 0.0 /100WBC 10/18/24 19:43 ESR 4 mm/hr (0-10) 10/18/24 19:43 Sodium 139 mmol/L (136-145) 10/18/24 19:43 Potassium 4.5 mmol/L (3.5-5.1) 10/18/24 19:43 Chloride 105 mmol/L (98-107) 10/18/24 19:43 Carbon Dioxide 24 mmol/L (22-29) 10/18/24 19:43 Anion Gap 14.5 (5-19) 10/18/24 19:43 BUN 12 mg/dL (6-20) 10/18/24 19:43 Creatinine 1.1 mg/dL (0.7-1.2) 10/18/24 19:43 GFR Calculation 73.8 mL/min (90-130) L 10/18/24 19:43 Glucose 104 mg/dL (65-115) 10/18/24 19:43 Calculated Osmolality 288 mOsm/kg (285-295) 10/18/24 19:43 Calcium 8.6 mg/dL (8.5-10.5) 10/18/24 19:43 Total Bilirubin 0.2 mg/dL (0.15-1.2) 10/18/24 19:43 AST 14 U/L (0-40) 10/18/24 19:43 ALT 24 U/L (0-41) 10/18/24 19:43 Alkaline Phosphatase 72 U/L (40-130) 10/18/24 19:43 C-Reactive Protein 17.3 mg/L (0.0-4.9) H 10/18/24 19:43 Total Protein 6.2 g/dL (6.6-8.7) L 10/18/24 19:43 Albumin 3.7 g/dL (3.5-5.2) 10/18/24 19:43 Globulin 2.5 g/dL (1.3-4.6) 10/18/24 19:43 All radiology interpretation(s) finalized by discharge Discharge Plan Discharge Patient Disposition: Home Clinical Impression: Abscess of left forearm, Cellulitis of left forearm Condition: Stable Prescriptions: New hydrocodone-acetaminophen 5-325 mg tablet 1 tab PO Q6H PRN (Reason: pain) Qty: 14 0RF No Action sulfamethoxazole-trimethoprim [Bactrim DS] 800-160 mg tablet 2 tab PO BID 10 Days Qty: 40 0RF mupirocin 2 % ointment 1 applic topical BID Qty: 15 0RF Discharge Orders: Discharge ED (Routine); Ordered 10/18/24 Ordered By: Kassidy Bartholomew Discharge Diet: Advance as tolerated Discharge Activity: Resume usual activity Patient Instructions: Abscess (ED), Opioid Safety Coding Level of Care Code ED Applications Engineering Manager for Rosa Butler
[2024-10-18 19:49] LABS: Erythrocyte Sedimentation Rate 4 mm/hr (0-10)
[2024-10-18 19:50] LABS: Basophils # 0.1 10^3/uL (0.0-0.1); Basophils % 0.5 %; Eosinophils # 0.3 10^3/uL (0.0-0.8); Eosinophils % 3.5 %; Hematocrit 44.3 % (37-53); Lymphocytes # 1.4 10^3/uL (0.8-4.8); Lymphocytes % 15.5 %; Mean Corpuscular HGB Conc 32.5 g/dL (30-55); Mean Corpuscular Hemoglobin 30.1 pg (27-33); Mean Corpuscular Volume 92.5 fl (82-101); Mean Platelet Volume 9.9 fL (7.4-10.4); Monocytes # 0.8 10^3/uL (0.2-0.9); Monocytes % 8.1 %; Neutrophils # 6.68 10^3/uL (1.8-7.7); Neutrophils % 72.1 %; Nucleated Red Blood Cells % 0 %; Platelet Count 330 10^3/cmm (157-399); Red Blood Count 4.79 10^6/uL (3.85-5.65); White Blood Count 9.27 10^3/uL (3.29-11.43)
[2024-10-18] MEDS: morphine 4 mg/mL SDV 1 mL IVP (20:01)
[2024-10-18] MEDS: lidocaine 1% INJ 20 mL SUBCUT (20:02)
[2024-10-18] MEDS: ondansetron 2 mg/ML SDV 2 mL 4 MG IVP (20:02)
[2024-10-18] MEDS: VANCOMYCIN ADD-Vantage 1,000 MG in 0.9% NaCl ADD-Vantage 250 ML 250 MG IV (20:02)
[2024-10-18 20:04] LABS: Alanine Aminotransferase 24 U/L (0-41); Albumin Level 3.7 g/dL (3.5-5.2); Alkaline Phosphatase 72 U/L (40-130); Anion Gap 14.5 (5-19); Aspartate Amino Transferase 14 U/L (0-40); Blood Urea Nitrogen 12 mg/dL (6-20); C Reactive Protein 17.3 mg/L (0.0-4.9); Calcium 8.6 mg/dL (8.5-10.5); Carbon Dioxide 24 mmol/L (22-29); Chloride 105 mmol/L (98-107); Globulin 2.5 g/dL (1.3-4.6); Glomerular Filtration Rate 73.8 mL/min (90-130); Glucose 104 mg/dL (65-115); Osmolality Calculated 288 mOsm/kg (285-295); Potassium 4.5 mmol/L (3.5-5.1); Sodium 139 mmol/L (136-145); Total Bilirubin 0.2 mg/dL (0.15-1.2); Total Protein 6.2 g/dL (6.6-8.7)
[2024-10-18] MEDS: HYDROcodone-acetaminophen 5-325 mg Tablet 2 TAB PO (21:04)
[2024-10-18 21:05] VITALS: BP 143/87; PULSE 80; RESP 20; O2SAT 98
== END 2024-10-18 21:12 | disposition home or self-care (01) ==
PROVIDERS: Emergency Provider Emergency Medicine
DX: L02.414 Cutaneous abscess of left upper limb (principal); L03.114 Cellulitis of left upper limb
CPT/HCPCS: 10060; 36415; 73130; 80053; 85025; 85651; 86140; 96365; 96374; 96375; 99284; J2270; J2405; J3370; J7050